=== PATIENT | male | born 1950 | race Caucasian/White ===

== ENCOUNTER 2020-06-28 16:03 | Observation (INO) | payer MEDICARE, BC, SELFPAY ==
[2020-06-28] VITALS (9 sets, daily range): BP systolic 124–153; BP diastolic 81–89; PULSE 73–147; RESP 14–18; TEMP 36.7–37.1; O2SAT 97–98; BMI 35.6; BMI 34.7
--- NOTE | 2020-06-28 16:28 | EKG12_ITS ---
Test Reason : TACHY Blood Pressure : / mmHG Vent. Rate : 137 BPM Atrial Rate : 127 BPM P-R Int : 000 ms QRS Dur : 088 ms QT Int : 316 ms P-R-T Axes : 000 -13 149 degrees QTc Int : 477 ms Atrial fibrillation with rapid ventricular response ST & T wave abnormality, consider lateral ischemia Abnormal ECG Confirmed by ARSALAN ANTONIO, ANNETTE ([id number]), editor dictionary GABI LATIF ([id number]) on 07/05/2020 12:49:43 P M Referred By: JEANETTE Confirmed By:GLORIA ARRIAZA MD
--- NOTE | 2020-06-28 16:43 | RAD_ITS ---
STUDY: X-RAY CHEST REASON FOR EXAM: Male, 69 years old. AFIB, TACHYCARDIA TECHNIQUE: Single AP portable view of the chest. COMPARISON: 07/21/2017 FINDINGS: The lungs are clear and expanded. There is no demonstrated pleural abnormality. Normal size heart. Normal mediastinum and óscar. Normal visualized pulmonary arteries. Normal visualized aortic arch and descending thoracic aorta. Normal visualized thoracic spine. Normal visualized ribs, clavicles, and shoulders. There is no demonstrated abnormality of the visualized soft tissue structures of the upper abdomen. RAD/Chest 1 View (Portable) IMPRESSION: Normal x-ray examination of the chest. Electronically Signed: Bryn Hairston MD at 17:06 EDT Tel , Service support ,
--- NOTE | 2020-06-28 16:44 | ED.DCSUM_ITS ---
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 Patient was noted to have tachycardia and be in A. fib on exam. He denies any chest pain. He does not feel like his heart racing or skipping beats. Patient has history of diabetes. He denies exertional dyspnea. He denies recent travel or surgery. Patient denies recent illness.] Physical Examination: [HEENT-PERRLA, EOMI. Cranial nerves II through XII grossly intact. TMs clear. Mucous membranes moist. No adenopathy. Cardiovascular-irregularly irregular and tachycardic. No murmurs auscultated. Lungs-clear to auscultation, chest wall stable without crepitus or subcu emphysema Abdomen-normoactive bowel sounds, soft, nontender, no rebound or rigidity, no peritoneal signs. Extremities-intact ?4, normal range of motion, normal pulses, atraumatic] Test Results: EKG obtained arrival showed atrial fibrillation with a ventricular rate of [address] changes noted. CBC with differential showed a white count 6.7, hemoglobin 16.9, hematocrit 50, platelet 292. Chemistries unremarkable. Troponin less than 0.015. Chest x-ray was unremarkable. [] Emergency Department Course and Treatment: [ Established. Patient placed on waste examiner. Patient was given Cardizem 20 mg IV bolus. Patient's heart rate improved into the 70s and 80s.] Treatment Plan: [Admit] Disposition: [Admit] Impression: [A. fib-RVR] This note was generated with [employer] dictation software. It may contain incorrect words, spelling, and punctuation that were not noted in review of the chart prior to signing ED Disposition - Plan for ED Patient: Referrals: Daniel Martin DO [Primary Care Provider] -
[2020-06-28] MEDS: dilTIAZem 25 MG/5 ML Vial 20 MG IV BOLUS (16:49)
[2020-06-28] MEDS: 0.9% Normal Saline 1,000 ML 150 ML IV (16:52)
[2020-06-28 17:01] LABS: Absolute Lymphocyte Count 2.74 X10^3/uL (0.83-4.51); Absolute Neutrophil Count 3.2 X10^3/uL (2.0-7.7); Basophil# 0.04 X10^3/uL; Basophil% 0.6 % (0-1); Eosinophil# 0.08 X10^3/uL; Eosinophils% 1.2 % (0-5); Hematocrit 50.3 % (40-54); Hemoglobin 16.9 g/dL (13.0-16.5); Lymphocyte # 2.74 X10^3/ul (4.0); Lymphocyte % 40.8 % (19-41); Mean Corp Hgb Conc 33.6 g/dL (32-36); Mean Corpuscular Hgb 30.6 pg (27.0-32.0); Mean Platelet Vol. 9.4 fl (6.2-12.0); Monocyte# 0.66 X10^3/uL; Monocyte% 9.8 % (0-10); NRBC Flagged by Analyzer 0 % (0-5); Neutrophil # 3.18 X10^3/uL (2.7-7.7); Neutrophil % 47.3 % (47-70); Platelet Count 292 K/mm3 (150-450); RBC Distribution Width CV 12.7 % (11.6-14.6); RBC Distribution Width SD 42.5 fl (35.1-43.9); Red Blood Count 5.53 M/mm3 (4.6-6.2); White Blood Count 6.7 K/mm3 (4.4-11.0)
[2020-06-28 17:13] LABS: Anion Gap 6 (5-15); BUN 15 mg/dL (7-18); BUN/Creat Ratio 11.5 RATIO (10-20); Calcium,Total 9.5 mg/dL (8.5-10.1); Chloride 108 mmol/L (98-107); EST Glomerular Filtration Rate 58 mL/min (>60); Est Glom Filt Rate - Afr Amer 70 mL/min (>60); Estimated Creatinine Clearance 58.86 ml/min; Glucose 118 mg/dL (74-106); Potassium 4.2 mmol/L (3.5-5.1); Sodium Level 143 mmol/L (136-145)
--- NOTE | 2020-06-28 17:50 | NURSING ---
DR ANJALI REID
--- NOTE | 2020-06-28 17:55 | HP.PCM_ITS ---
History of Present Illness Date of Admission: 06/28/20 Chief Complaint: afib with RVR The patient is a 69 year old M with a past medical history as outlined was admitted through the ED on 06/28/2020 with a complaint of A. fib with RVR. Patient went to see his cutter helper for review of his diabetes mellitus. Whilst there, he was noted to be in A. fib with RVR. Patient had no symptoms whatsoever and denied any palpitations, chest pain or shortness of breath, though he did admit to episodic lightheadedness over the past couple of days. Review of symptoms otherwise negative. Patient does have a history of A. fib and used to be on xarelto and carvedilol, from review of cardiology records 2 years ago, but had taken himself off these medications because he didnt think he needed them. In the ED on admission, EKG showed A. fib with RVR with heart rate of 137. At time of review, vitals showed temperature of 98 Fahrenheit with blood pressure of 144/84 and pulse rate of 82 as well as respiratory rate of 14. Chemistry essentially unremarkable initial troponin was negative. CBC was also unremarkable. Chest x-ray showed no acute cardiopulmonary process. He received a dose of IV Cardizem bolus which made the heart rate come down. He has been admitted to manage for A. fib with RVR. [] Past Medical History Past Medical History (Chronic Problems): Chronic Problems (Last Updated 02/08/18 @ 11:28 by [employer]) Paroxysmal atrial fibrillation (Chronic) Left ventricular hypertrophy (Chronic) HTN (hypertension) (Chronic) Atrial fibrillation with RVR (Chronic) Chest pain (Chronic) Medical History: Medical History (Last Updated 02/08/18 @ 11:28 by [employer]) Paroxysmal atrial fibrillation (Chronic) I48.0 Left ventricular hypertrophy (Chronic) I51.7 HTN (hypertension) (Chronic) I10 Atrial fibrillation with RVR (Chronic) I48.91 Chest pain (Chronic) R07.9 Hypothyroid E03.9 GEMMA (obstructive sleep apnea) G47.33 Allergies Penicillins Allergy (Verified 06/28/20 16:04) Unknown Home Medications: Ambulatory Orders Medication Instructions Recorded Metformin HCl [Metformin HCl ER] 500 mg PO LUNCH 06/28/20 Surgical History: Surgical History (Last Updated 02/08/18 @ 11:28 by Soraya Tena) History of cholecystectomy Z90.49 History of hemorrhoidectomy Z98.890 Surgical History: - - Cholecystectomy, T+A, BL TKR. Psychiatric History: No pertinent psych hx Lives: Alone Smoking Status: Never smoker Alcohol: None Drugs: None - *Family History Maternal Family History: Family History (Last Updated 02/08/18 @ 11:29 by Soraya Tena) Father No problems noted. History Items: No pertinent history Review of Systems Constitutional: Denies: Chills, Fever, Malaise, Weakness, Weight Change Eyes: Denies: Blurred vision HEENT: Denies: Head Aches, Sinus Congestion, Sinus Drainage Cardiovascular: Denies: Chest Pain, Chest Pressure, Chest Tightness, Orthopnea, Palpitations Respiratory: Denies: Cough, Shortness of Breath, Shortness of breath at rest, Shortness of breath upon exertion, Sputum production Gastrointestinal: Denies: Abdominal Pain, Nausea, Vomiting Genitourinary: Denies: Dysuria Musculoskeletal: Denies: Joint Pain, Joint Tenderness Skin: Denies: Rash, Wounds Neurological: Denies: Numbness, Tingling, Focal weakness Psychiatric: Denies: Anxiety, Depression, Homicidal Ideations, Suicidal Idea tions Hematologic/ Lymphatic: Denies: Easy Bruising, Easy Bleeding VTE Information - Inpt Only VTE Present on Admission: No VTE Pharm Prophylaxis ordered?: Yes - Physical Exam Vitals/I&O's: Vital Signs Temp Pulse Resp BP Pulse Ox 98.0 F 82 14 144/84 H 98 06/28/20 16:05 06/28/20 16:54 06/28/20 16:05 06/28/20 16:05 06/28/20 16:05 Oxygen Delivery Method Room Air Weight: 262 lb 5.601 oz Body Mass Index (BMI) 35.6 General: Alert, Oriented x3, Cooperative, No apparent distress HEENT: Atraumatic, PERRLA, EOMI, Normocephalic Oral: Moist Mucosa Neck: Supple, No JVD, Negative Carotid Bruits Lungs: Clear to auscultation, Normal air movement, No rhonchi, No wheeze, No rales Cardiovascular: Normal S1, Normal S2, Irregular Rate - Afib, rate controlled Abdomen: Bowel Sounds Present, Soft, Non Tender, Non-Distended, No Hepato- splenomegaly Extremities: No clubbing, No cyanosis, No edema, Capillary Refill Less than 3 Seconds Skin: No rashes, No breakdown Musculoskeletal: No Tenderness to Palpation of Joints or Extremities Lymphatic: No Cervical, Supraclavicular, or Inguinal Adenopathy Neurological: Cranial nerves II-XII grossly intact, Neuro grossly intact, Motor Exam 5/5 strength throughout Psych/Mental Status: Normal Affect, Appropriate, Alert and oriented to time, place, person, mood and affect Laboratory Results 06/28/20 16:40: WBC 6.7, RBC 5.53, Hgb 16.9 H, Hct 50.3, MCV 91.0, MCH 30.6, MCHC 33.6, RDW Std Deviation 42.5, RDW Coeff of Donell 12.7, Plt Count 292, MPV 9.4, Immature Gran % (Auto) 0.300, Neut % (Auto) 47.3, Lymph % (Auto) 40.8, Bethel % (Auto) 9.8, Eos % (Auto) 1.2, Baso % (Auto) 0.6, Absolute Neuts (auto) 3.2, Absolute Lymphs (auto) 2.74, Nucleated RBC % 0 06/28/20 16:40: Sodium 143, Potassium 4.2, Chloride 108 H, Carbon Dioxide 29.0, Anion Gap 6, BUN 15, Creatinine 1.30, Estim Creat Clear Calc 58.86, Est GFR (MDRD) Af Amer 70, Est GFR (MDRD) Non-Af 58 L, BUN/Creatinine Ratio 11.5, Glucose 118 H, Calcium 9.5, Troponin I < 0.015 Diagnostic Data Chest X-Ray 06/28/20 16:43 IMPRESSION: Normal x-ray examination of the chest. Electronically Signed: Bryn Hairston MD at 17:06 EDT Tel , Service support , Current Medications Sodium Chloride () 1,000 mls @ 150 mls/hr IV .[id number] NILSA Last Admin: 06/28/20 16:52 Dose: 150 mls/hr Documented by: Assessment/Plan 69-year-old admitted with a complaint of A. fib with RVR. # Afib with RVR * Admit to PCU with telemetry * Cycle troponins x3. Get 2D echo. * Check TSH. * Started on p.o. metoprolol 25 mg daily. Put patient on Xarelto. * since patient has a history of afib, but just defaulted treatment and followup, and is stable now, I will hold off on cardiology consult for now. patient wishes to follow up with Dr Guerrero on outpatient basis. * #Type 2 diabetes mellitus: * On metformin. Insulin sliding scale. * Accu-Cheks AC at bedtime. * DVT prophylaxis: Start patient on Xarelto. CODE STATUS: full code * Patient counseled extensively about different types of CODE STATUS including full code, DNR CCA and DNR CCA. Patient elects to be full code. * Total snkc-tz-ivrw time 16 minutes. * Inpatient E&M: 56251 Init Hosp L2 Procedures: 25142 Advncd Care Plan 30 Min
--- NOTE | 2020-06-28 17:57 | NURSING ---
110 ANJALI LLANES RVR
[2020-06-28] MEDS: Rivaroxaban 20 MG Tablet PO (19:28)
[2020-06-28] MEDS: Metoprolol(XL)Succ 50 MG Tablet PO (19:28)
[2020-06-28 21:41] LABS: Bedside Glucose 158 mg/dL (70-110)
[2020-06-29] VITALS (8 sets, daily range): BP systolic 124–154; BP diastolic 74–93; PULSE 75–120; RESP 16–18; TEMP 36.2–36.6; O2SAT 94–98
[2020-06-29 02:23] LABS: Absolute Lymphocyte Count 2.34 X10^3/uL (0.83-4.51); Absolute Neutrophil Count 2.7 X10^3/uL (2.0-7.7); Basophil# 0.02 X10^3/uL; Basophil% 0.4 % (0-1); Eosinophil# 0.09 X10^3/uL; Eosinophils% 1.6 % (0-5); Hematocrit 46.3 % (40-54); Hemoglobin 15.7 g/dL (13.0-16.5); Lymphocyte # 2.34 X10^3/ul (4.0); Lymphocyte % 42.2 % (19-41); Mean Corp Hgb Conc 33.9 g/dL (32-36); Mean Corpuscular Hgb 30.7 pg (27.0-32.0); Mean Corpuscular Volume 90.4 fL (80-94); Mean Platelet Vol. 9.3 fl (6.2-12.0); Monocyte# 0.42 X10^3/uL; Monocyte% 7.6 % (0-10); NRBC Flagged by Analyzer 0 % (0-5); Neutrophil # 2.66 X10^3/uL (2.7-7.7); Platelet Count 238 K/mm3 (150-450); RBC Distribution Width CV 12.7 % (11.6-14.6); RBC Distribution Width SD 41.6 fl (35.1-43.9); Red Blood Count 5.12 M/mm3 (4.6-6.2); White Blood Count 5.5 K/mm3 (4.4-11.0)
[2020-06-29 02:40] LABS: Anion Gap 5 (5-15); BUN 14 mg/dL (7-18); BUN/Creat Ratio 13.2 RATIO (10-20); Calcium,Total 8.7 mg/dL (8.5-10.1); Chloride 109 mmol/L (98-107); Creatinine, Serum 1.06 mg/dL (0.70-1.30); EST Glomerular Filtration Rate 73 mL/min (>60); Est Glom Filt Rate - Afr Amer 89 mL/min (>60); Estimated Creatinine Clearance 72.19 ml/min; Glucose 134 mg/dL (74-106); Potassium 3.9 mmol/L (3.5-5.1); Sodium Level 142 mmol/L (136-145)
--- NOTE | 2020-06-29 05:55 | ECHOCS_ITS ---
Reason For Study: Afib, Aflutter Procedure This was a 2D Doppler, Color Flow transthoracic echocardiogram. Contrast injection was performed. Exam performed in department. Left Ventricle Normal LV size. Severe concentric left ventricular hypertrophy. The estimated ejection fraction is 40 %. There is moderate global hypokinesis of the left ventricle. Right Ventricle Normal RV size. Normal systolic function. Atria The left atrium is mildly enlarged. Mitral Valve Normal mitral valve. Mild (1+) eccentric mitral valve insufficiency. Tricuspid Valve Normal tricuspid valve. Aortic Valve The aortic valve is not well visualized. Aortic sclerosis, no stenosis. Mild (1+) aortic valve insufficiency. Pulmonic Valve The pulmonic valve is not well visualized. Great Vessels Normal aortic root. The pulmonary artery is normal size. Normal inferior vena cava. Pericardium/Pleural No pericardial effusion. Medication Diluted definity 3ml given slow IV push to enhance endocardial definition. MMode/2D Measurements & Calculations LVIDd: 3.9 cm IVSd: 1.8 cm Ao root diam: 3.3 cm LVIDs: 2.9 cm LVPWd: 2.3 cm RVDd: 3.7 cm FS: 26.5 % LAV(MOD-bp): 57.6 ml LA A4 area: 20.5 cm2 LA dimension(2D): 4.4 cm LAV(MOD-bp) Indexed: 24.4 ml/m2 LAV(MOD-sp2): 60.4 ml LAV(MOD-sp4): 55.1 ml RA A4 area: 13.1 cm2 Doppler Measurements & Calculations MV E max bo: 93.0 cm/sec Ao V2 max: 226.9 cm/sec AI max bo: 533.3 cm/sec Ao max P.8 mmHg AI max P.7 mmHg Ao V2 mean: 157.4 cm/sec AI dec slope: 226.6 cm/sec2 Ao mean P.0 mmHg AI P1/2t: 689.4 msec Ao V2 VTI: 36.4 cm LV V1 max: 91.6 cm/sec PA V2 max: 118.8 cm/sec TR max bo: 226.6 cm/sec LV V1 max P.6 mmHg TR max P.5 mmHg LV V1 mean P.7 mmHg LV V1 mean: 58.4 cm/sec LV V1 VTI: 12.0 cm Interpretation Summary Normal LV size. Severe concentric left ventricular hypertrophy. The estimated ejection fraction is 40 %. There is moderate global hypokinesis of the left ventricle. Mild (1+) aortic valve insufficiency. Ordering Physician: Joycelyn Gutierrez Referring Physician: Daniel Martin Performed By: Rea Fournier, MAGDICS, RVT
[2020-06-29 07:41] LABS: Bedside Glucose 148 mg/dL (70-110)
[2020-06-29] MEDS: Metoprolol(XL)Succ 50 MG Tablet PO (11:51)
[2020-06-29 12:11] LABS: Bedside Glucose 166 mg/dL (70-110)
[2020-06-29] MEDS: metFORMIN (XR) 500 MG Tablet PO (12:24)
[2020-06-29] MEDS: Metoprolol Tartrate 25 MG Tablet 50 MG PO (13:42)
--- NOTE | 2020-06-29 14:19 | CASEMGMT ---
Addendum entered by Luke Gonzalez 06/29/20 16:21: Per Dr Gustafson, pt will be discharged home on Eliquis. KIM GAN to room at this time. Eliquis 30-day savings card provided to pt and who is at bedside. They were instructed on use of Eliquis card, questions answered, and they voice understanding. Original Note: KIM GAN NOTE: KIM GAN to room to talk w/pt and discuss discharge planning and to review BROOKS form. Pt denies having any discharge needs/concerns/questions. BROOKS form reviewed with pt at this time and he denies having any questions. BROOKS form signed by pt, copy made and placed on chart and original given to pt. Pt made aware to ask for KIM GAN if he does have any questions about the form and any discharge needs/concerns. Pt voices understanding. Benito RASCON RN, CM
--- NOTE | 2020-06-29 16:19 | DCINST_ITS ---
You will use the following diet at home:: Calorie/Carbohydrate Controlled (specify 1200, 1400, etc) - 1800 AGUSTÍN Your food should be the consistency of: Regular Your liquids should be the consistency of: Regular/Thin Discharge Activity: Return to Normal Activity Additional Instructions: TAKE ONLY TYLENOL FOR PAIN-NO IBUPROFEN, ASPIRIN, OR ALLEVE. CALL YOUR PHYSICIAN IF YOU SEE ANY ABNORMAL BLEEDING Allergies/Adverse Reactions: Allergies Penicillins Allergy (Verified 06/28/20 16:04) Unknown Medications to take at Discharge Metformin HCl [Metformin HCl ER] 500 mg PO LUNCH 06/28/20 Apixaban [Eliquis] 5 mg PO BID #60 tab 06/29/20 Atorvastatin Calcium [Lipitor] 10 mg PO DAILY #30 tab 06/29/20 Lisinopril 5 mg PO DAILY #30 tab 06/29/20 Metoprolol Tartrate [Lopressor (beta ha)] 75 mg PO BID #90 tab 06/29/20 The following prescriptions were given: Apixaban [Eliquis] 5 mg PO BID #60 tab Transmission Status: Pending to [facility] Atorvastatin Calcium [Lipitor] 10 mg PO DAILY #30 tab Transmission Status: [email or web address] Lisinopril 5 mg PO DAILY #30 tab Transmission Status: Pending to [facility]12 Metoprolol Tartrate [Lopressor (beta ha)] 75 mg PO BID #90 tab Transmission Status[facility] Primary Care Physician: Daniel Martin DO [Primary Care Provider] - Please follow up with your Primary Care Physician in: IN 2 WEEKS Test Results: Test results from this visit will be discussed in further detail at your follow- up appointment, if applicable. Please Follow Up With: Daniel Guerrero MD
[2020-06-29] MEDS: Rivaroxaban 20 MG Tablet PO (16:23)
--- NOTE | 2020-06-29 16:25 | STRESSREP ---
Stress Test Report Pharmacologic myocardial perfusion stress test. 69-year-old man with a history of atrial fibrillation. Stress protocol: Resting EKG demonstrates atrial fibrillation with a rate of 110 bpm resting blood pressure is 158/80 mmHg. 0.4 mg of regadenoson was infused per usual protocol followed by rapid intravenous and flush injection. The maximum heart rate was 146 bpm which was 96% of max impacted heart rate the maximum workload was 1 metabolic equivalent. At rest there were no ST or T wave changes noted to suggest abnormal flow reserve at peak infusion nonspecific ST-T wave changes were noted with no meet the criteria for ischemia. The resting blood pressure was 158/80 with a final blood pressure 146/72 mmHg. Myocardial perfusion protocol. 14.7 mCi of technetium 99m sestamibi was injected at rest. 0.4 mg of regadenoson was infused per usual protocol. At peak infusion 44.8 mCi of technetium 99m sestamibi was injected stress images were obtained stress and rest images are reconstructed and compared in the short axis vertical long horizontal long axis. Gated images were also obtained Perfusion SPECT analysis: Review of the stress images demonstrate normal uptake of tracer noted in all areas of the myocardium the resting images similar demonstrate normal uptake of tracer noted in all areas of the myocardium. No areas of reversibility are noted to suggest ischemia no previous infarct is noted. Gated SPECT analysis: The gated ejection fraction is approximately 30%. Conclusion: Normal pharmacologic myocardial perfusion stress test. Atrial fibrillation noted. Cardiomyopathy present.
--- NOTE | 2020-06-30 08:47 | DS.PCM_ITS ---
Discharge Date and Diagnosis Date of Admission: 06/28/20 Date of Discharge: 06/29/20 - Primary Discharge Diagnosis Acute Problems: #1 paroxysmal A. 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% - Secondary Discharge Diagnosis Chronic Problems: Chronic Problems (Last Updated 02/08/18 @ 11:28 by Soraya Tena) Paroxysmal atrial fibrillation (Chronic) Left ventricular hypertrophy (Chronic) HTN (hypertension) (Chronic) Atrial fibrillation with RVR (Chronic) Chest pain (Chronic) Hospital Course and Treatment Operations: None Procedures: 2-D Echocardiogram, Nuclear stress test Summary of Care Provided: The patient is a 69 year old M was seen in the emergency room at [facility] after 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 Evaluation in the emergency room included an EKG which showed atrial fibrillation with a ventricular rate of 137, no acute ischemic changes were noted, CBC was unremarkable, chemistries were also unremarkable. Chest x-ray was performed and showed no acute process. Patient was given IV Cardizem 20 mg and his heart rate slowed into the 70s and 80s, he was placed in observation status on PCU, echocardiogram was obtained which showed a reduced EF of 40%, patient had a nuclear stress test performed which showed no evidence of reversible ischemia. Patient's cardiac enzymes elevated slightly during his admission but he was not felt to have a non-STEMI. On 06/29/2020, patient was seen and examined: On examination he appeared in good health and spirits. Vital signs as documented. Skin warm and dry and without overt rashes. Neck without JVD, neck was supple, trachea midline, thyroid was normal. Lungs clear bilaterally, normal air movement was noted. Heart exam notable for irregular rhythm, normal sounds and absence of murmurs, rubs or gallops. Abdomen unremarkable and without evidence of organomegaly, masses, or abdominal aortic enlargement. Bowel sounds are present, abdomen is not distended. Extremities nonedematous, no cyanosis was noted, no clubbing was noted. Neuro: Cranial nerves II through XII are grossly intact, no focal motor deficits were noted, sensation to light touch and pinprick intact, motor exam 5/5 throughout. Psych: Patient is alert and oriented x3, he does not appear anxious or depressed, he does not appear agitated. On 06/29/2020, I went over extensively with the patient his medical problems, I also did this in the presence of his who came to take him home. Patient was placed on Lipitor due to his history of diabetes, he was placed on rate control medication and Eliquis. Finally, patient was placed on a small dose of an BETHEL inhibitor for renal protection. An appointment was made for follow-up with Dr. Guerrero in approximately 5 weeks. The patient and the patient's appear to understand the discharge instruction. Patient was discharged in stable condition on 06/29/2020 - Physical Exam Vitals/I&O's: Vital Signs Temp Pulse Resp BP Pulse Ox 97.9 F 75 18 124/74 H 94 06/29/20 15:55 06/29/20 15:55 06/29/20 15:55 06/29/20 15:55 06/29/20 15:55 Oxygen Delivery Method Room Air Weight: 116 kg Body Mass Index (BMI) 34.7 Intake and Output for Last 24 Hours 06/28/20 06/29/20 06/30/20 23:59 23:59 23:59 Intake Total 817.5 / 817.5 240 / 240 Balance 817.5 / 817.5 240 / 240 Laboratory Results 06/29/20 12:04: POC Glucose 166 H Discharge Activity: Return to Normal Activity Home Medications: Medications to take at Discharge Metformin HCl [Metformin HCl ER] 500 mg PO LUNCH 06/28/20 Apixaban [Eliquis] 5 mg PO BID #60 tab 06/29/20 Atorvastatin Calcium [Lipitor] 10 mg PO DAILY #30 tab 06/29/20 Lisinopril 5 mg PO DAILY #30 tab 06/29/20 Metoprolol Tartrate [Lopressor (beta ha)] 75 mg PO BID #90 tab 06/29/20 Following Prescriptions Were Given to Patient: Apixaban [Eliquis] 5 mg PO BID #60 tab [facility] Atorvastatin Calcium [Lipitor] 10 mg PO DAILY #30 tab Transmission Status: [facility] Lisinopril 5 mg PO DAILY #30 tab Transmission Status: [facility] Metoprolol Tartrate [Lopressor (beta ha)] 75 mg PO BID #90 tab Transmission Status: Received by [facility] Primary Care Physician: Daniel Martin DO [Primary Care Provider] - Please follow up with your Primary Care Physician in: IN 2 WEEKS Please Follow Up With: Daniel Guerrero MD Disposition: Home Minutes spent on discharge:: 31 Patient Condition:: Stable Medical Necessity - Tobacco Use Smoking Status: Never smoker Tobacco Use: Non-smoker Meaningful Use Info Meaningful Use Diagnoses (Choose all that apply): None applicable OBSV E&M: 09726 Observation care discharge
== END 2020-06-29 16:23 | disposition home or self-care (01) ==
LOC: ED 17:45 → PCU 18:10
PROVIDERS: Family Medicine; Admitting Provider Student in an Organized Health Care Education/Training Program; Emergency Provider Emergency Medicine; PCP Family Medicine; Visit Provider Internal Medicine
DX: I48.0 Paroxysmal atrial fibrillation (principal); E11.9 Type 2 diabetes mellitus without complications; I42.8 Other cardiomyopathies; I11.9 Hypertensive heart disease without heart failure; G47.33 Obstructive sleep apnea (adult) (pediatric); I42.9 Cardiomyopathy, unspecified; I48.92 Unspecified atrial flutter; I08.0 Rheumatic disorders of both mitral and aortic valves; Z79.84 Long term (current) use of oral hypoglycemic drugs; R00.0 Tachycardia, unspecified; R42 Dizziness and giddiness; R07.9 Chest pain, unspecified
CPT/HCPCS: 36415; 71045; 78452; 80048; 82962; 84484; 85025; 93005; 93017; 93306; 96361; 96374; 99218; 99285; A9500; J7030; Q9957; A4216; C8929; G0378; J2785

== ENCOUNTER → 2020-08-20 10:57 | Outpatient (CLI) | payer MEDICARE, BC, SELFPAY ==
[2020-08-09 15:01] VITALS: BMI 36.2
== END ==
PROVIDERS: PCP Family Medicine; Referring Provider Internal Medicine Cardiovascular Disease; Visit Provider Internal Medicine Cardiovascular Disease
DX: I42.9 Cardiomyopathy, unspecified (principal); I48.0 Paroxysmal atrial fibrillation
CPT/HCPCS: 93225; 93226

== ENCOUNTER 2025-07-19 00:28 | Emergency (ER) | payer MEDICARE, BC, SELFPAY ==
[2025-07-19 00:28] VITALS: BP 196/110; PULSE 90; RESP 16; TEMP 36.7; O2SAT 95; BMI 31.4
--- NOTE | 2025-07-19 00:57 | EX.ED.DYSGE1 ---
HPI History of Present Illness Chief Complaint: Hypertension Narrative Narrative: Patient is a 75-year-old male presenting to the emergency department for hypertension. Patient has a past medical history of cardiomyopathy, type 2 diabetes, hypertension, A-fib. Patient is supposed to be on lisinopril, metoprolol, Eliquis, metformin, glipizide but states that he not afford his medications which is why he stopped taking them 4 years ago. He has not seen a primary care doctor. Patient states that earlier today he was at [employer] filling up his truck with gas when he felt the need to urinate and urinated in his pants. States he took his pants off then because he urinated in them. Police showed up this evening to his house because he had this episode at [employer]. Patient denied the episode to police so EMS was called for a check on the patient. When they arrived his BP was elevated so they brought him here for evaluation. Patient is completely asymptomatic. He denies any symptoms to me including headache, vision changes, chest pain, shortness of breath, abdominal pain, vomiting, focal numbness or weakness, slurred speech. Denies dysuria or hematuria. [facility] Medical History Cardiomyopathy Type 2 diabetes mellitus Essential hypertension GEMMA (obstructive sleep apnea) Hypothyroid Paroxysmal atrial fibrillation Left ventricular hypertrophy Atrial fibrillation with RVR Chest pain Home Medications ?Medication ?Instructions ?Recorded ?Last Taken ?Type apixaban 5 mg tablet 5 mg PO BID #60 tabs 06/29/20 Unknown Rx atorvastatin 10 mg tablet 10 mg PO DAILY #30 tabs 06/29/20 Unknown Rx lisinopril 5 mg tablet 5 mg PO DAILY #30 tabs 06/29/20 Unknown Rx metformin 500 mg tablet,extended 250 mg PO BID DM 11/15/20 Unknown History release 24 hr metoprolol tartrate 25 mg tablet 25 mg PO BID #180 tabs 11/15/20 Unknown Rx apixaban 5 mg tablet (Eliquis) 5 mg PO BID #60 tabs 07/19/25 Unknown Rx lisinopril 5 mg tablet 5 mg PO DAILY #30 tabs 07/19/25 Unknown Rx metoprolol tartrate 50 mg tablet 50 mg PO BID #60 tabs 07/19/25 Unknown Rx Allergy/AdvReac Type Severity Reaction Status Date / Time Penicillins Allergy Unknown Verified 07/19/25 00:36 Family History Father No problems noted. Surgical History History of bilateral knee replacement History of hemorrhoidectomy History of cholecystectomy Social History Smoking Status: Former smoker alcohol intake: current details: occasional substance use type: does not use ROS ROS ED ROS Narrative see HPI EXAM Physical Exam Narrative Exam Narrative: Vital signs: Reviewed General: Alert and orientedx3. No acute distress. Well kept, non disheveled HEENT: Head is normocephalic and atraumatic, sinuses nontender, pupils equal round and reactive. Nares are patent. Oropharynx and throat exams normal. Neck: Supple without lymphadenopathy nontender Cardiovascular: Regular rate and rhythm, no murmurs. No rubs or gallops. Normal S1 and S2 Respiratory: Clear to auscultation bilaterally. No wheezes, rales, rhonchi Abdominal: Soft and nontender to palpation. Normal bowel sounds. No guarding or rebound. Nonsurgical abdomen Extremities: No lower extremity edema. No tenderness. No bruising. Normal range of motion. Normal sensation. Skin: No rash or redness. Neurological: Cranial nerves II through XII are grossly intact. Normal strength and sensation. Normal cerebellar function The rest of the physical exam is unremarkable Const Vital Signs: 07/19/25 00:28 07/19/25 00:28 07/19/25 01:03 Temperature 98.1 F Temperature Source Oral Pulse Rate 90 79 Respiratory Rate 16 17 Respiratory Pattern Normal Blood Pressure 196/110 H 155/82 H Blood Pressure Mean 138 106 Pulse Ox 95 93 Oxygen Delivery Method Room Air Room Air 07/19/25 01:30 07/19/25 02:00 07/19/25 02:10 Temperature 98.1 F Temperature Source Pulse Rate 78 99 98 Respiratory Rate 12 15 17 Respiratory Pattern Blood Pressure 154/63 H 146/100 H 149/101 H Blood Pressure Mean 93 115 117 Pulse Ox 99 98 98 Oxygen Delivery Method Room Air MDM MDM MDM Narrative Medical decision making narrative: Patient is a 75-year-old male presenting to the emergency department for hypertension. Patient was seen and examined. Vitals are stable. Patient appears to be in A-fib, rate controlled around 75 on the monitor. States he is always in A-fib. Blood pressure is initially 196/110. Patient resting in bed comfortably in no acute distress. Differential includes but is not limited to: Asymptomatic hypertension, hypertensive urgency versus emergency Patient has no symptoms of hypertensive emergency. He is denying chest pain, shortness of breath, abdominal pain, headache, vision changes or focal neurologic deficits. Exam is completely unremarkable. Patient has not taken his antihypertensives or any of his other medication in 4 years. I would expect his blood pressure to be elevated. I had an extensive discussion at bedside about medication compliance and patient has concerns about the cost of his medications. I explained that I cannot represcribe his blood pressure medications and give him a card for a 30-day free trial of Eliquis. at bedside also expresses concern that he does not have a primary care doctor. A referral will be given. I will prescribe the patient's antihypertensives here in the emergency department as well as give him his dose of Eliquis. With patient being completely asymptomatic there is no indication for labs or imaging. With the patient having the urinary episode earlier today I will obtain a urinalysis to evaluate for UTI. Urinalysis reviewed, no evidence of urinary tract infection. There is glucose consistent with his diabetes history however no ketones. Patient and at bedside were updated on the urine results. All questions were answered. Given a GoodRx card for his prescriptions as well. Patient ambulates without difficulty. Patient discharged from the Emergency Department. I do not feel that the patient's evaluation reveals any acute reason for admission at this time. I instructed them to either follow-up with their primary care physician or promptly return to the Emergency Department for reevaluation should symptoms worsen or new symptoms develop. I explained what symptoms would indicate the need to return to the emergency department. Shared decision making was used. The patient voiced understanding of the treatment plan and is agreeable with it. Clinical impression: Asymptomatic hypertension History & Record Review Discussion w/independent historian: Patient and Significant other Lab Data Labs: Laboratory Results - last 24 hr 07/19/25 01:45 Urine Color Yellow Urine Clarity Clear Urine pH 6.0 Ur Specific [place] 1.010 Urine Protein Negative Urine Glucose (UA) 1000 H Urine Ketones Negative Urine Occult Blood Negative Urine Nitrite Negative Urine Bilirubin Negative Urine Urobilinogen Normal Ur Leukocyte Esterase Negative Urine RBC 0 SEEN Urine WBC 0 SEEN Ur Squamous Epith Cells 0 SEEN Urine Bacteria 0 SEEN Urine Mucus 0 SEEN Discharge Plan Triage Chief Complaint: Hypertension ED Provider: Jackelin Palmer Dx/Rx/DC Orders Clinical Impression: Asymptomatic hypertension Instructions: ED Hypertension, Established, ED High Blood Pressure Hypertension Prescriptions: New metoprolol tartrate 50 mg tablet 50 mg PO BID Qty: 60 0RF lisinopril 5 mg tablet 5 mg PO DAILY Qty: 30 0RF Eliquis 5 mg tablet 5 mg PO BID Qty: 60 0RF No Action metoprolol tartrate 25 mg tablet 25 mg PO BID Qty: 180 3RF atorvastatin 10 MG tablet 10 mg PO DAILY Qty: 30 0RF lisinopril 5 MG tablet 5 mg PO DAILY Qty: 30 0RF apixaban 5 MG tablet 5 mg PO BID Qty: 60 1RF Rx Instructions: START ON 06/30/20 metformin 500 mg tablet extended release 24 hr 250 mg PO BID Primary Care Provider: Care Physician,No Primary Referrals: Irma Hancock MD [Med Staff - Water Filter Cleaner, Internal Medicine] - As soon as possible Care Physician,No Primary [Primary Care Provider, Medical] Activity Restrictions/Additional Instructions: I provided you with a primary care doctor to follow-up with them soon as possible. Take your medications as prescribed. Your evaluation in the Emergency Department did not reveal any acute reason for admission. However, I want to emphasize that you may be early in the course of a disease process or illness even if it is not present. For this reason you should follow-up within 24 hours for reevaluation with either your primary care physician or if necessary back here in the Emergency Department. You should return to the Emergency Department immediately if your symptoms worsen or new symptoms develop. Print Language: Hungarian Disposition Disposition: Home, Self Care
[2025-07-19 01:03] VITALS: BP 155/82; PULSE 79; RESP 17; O2SAT 93
[2025-07-19] MEDS: Metoprolol(XL)Succ 50 MG Tablet PO (01:08)
[2025-07-19] MEDS: APIXABAN 5 MG TABLET PO (01:08)
[2025-07-19 01:30] VITALS: BP 154/63; PULSE 78; RESP 12; O2SAT 99
[2025-07-19 01:49] LABS: Mucous, Urine 0 SEEN /hpf (<or=2+); Red Blood Cells-Urine 0 SEEN /hpf (0-5); Squamous Epithelial Cells - UA 0 SEEN /hpf (0-5)
[2025-07-19 01:50] LABS: Color, Urine Yellow (Yellow); Glucose, Dipstick 1000 mg/dl (Normal); Ketone-Dipstick Negative (Negative); Leukocyte Esterase-Dipstick Negative /ul (Negative); Nitrite-Dipstick Negative (Negative); Occult Blood-Urine Negative /ul (Negative); Protein-Dipstick Negative (Negative); Specific Gravity, Urine 1.010 (1.002-1.030); Urine Bilirubin Dipstick Negative (Negative)
[2025-07-19 02:00] VITALS: BP 146/100; PULSE 99; RESP 15; O2SAT 98
[2025-07-19 02:10] VITALS: BP 149/101; PULSE 98; RESP 17; TEMP 36.7; O2SAT 98
== END 2025-07-19 02:17 | disposition home or self-care (01) ==
PROVIDERS: Emergency Provider Student in an Organized Health Care Education/Training Program; Visit Provider Student in an Organized Health Care Education/Training Program
DX: I10 Essential (primary) hypertension (principal); I48.0 Paroxysmal atrial fibrillation; E11.9 Type 2 diabetes mellitus without complications; Z87.891 Personal history of nicotine dependence; Z91.141 Patient's other noncompliance with medication regimen due to financial hardship
CPT/HCPCS: 81001; 99285